=== PATIENT | female | born 2005 | race Caucasian/White ===

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

== ENCOUNTER 2023-11-02 17:21 | Emergency (ER) | payer OTHER ==
[~2023-11-02] VITALS: Ht 160 cm; Wt 115.7 kg
[~2023-11-02 17:21] MED LIST changes: +KEFLEX500 M1 PO
[2023-11-02] MEDS ORDERED: XULANE PATCH1 EACH TD (17:28)
[2023-11-02 17:58] LABS: BILIRUBIN Negative (Negative); BLOOD 3+ (Negative); CLARITY Turbid (Clear); COLOR Red (Yellow); GLUCOSE Negative (Negative); KETONE Negative (Negative); LEUKO ESTERASE 3+ (Negative); NITRITE Negative (Negative); SPECIFIC GRAVITY 1.025 (1.001-1.030)
[2023-11-02 18:15] LABS: RBC TNTC rbc/hpf (0-2); WBC TNTC wbc/hpf (0-5)
[2023-11-02 18:16] LABS: CALCIUM OXALATE CRYSTALS 1+
[2023-11-02] MEDS ORDERED: CEPHALEXIN 500 MG CAP PO ONE (18:20)
[2023-11-02] MEDS ORDERED: CEPHALEXIN500 M1 PO (18:50)
== END 2023-11-02 18:58 | disposition home or self-care (01) ==
LOC: ED 17:21
PROVIDERS: Emergency Medicine
DX: N39.0 Urinary tract infection, site not specified (principal)